=== PATIENT | female | born 2000 | race Caucasian/White ===

== ENCOUNTER 2020-12-26 17:32 | Emergency (ER) | payer OTHER ==
[~2020-12-26] VITALS: Ht 170.2 cm; Wt 63.5 kg
[2020-12-26 17:44] VITALS: BP 126/76
--- NOTE | 2020-12-26 21:00 | NUR ---
2100- PT LEFT WITHOUT BEING SEEN
== END 2020-12-26 21:00 | disposition left against medical advice (07) ==
LOC: MED 17:32
DX: Z53.21 Procedure and treatment not carried out due to patient leaving prior to being seen by health care provider (principal)
CPT/HCPCS: 71101; 99281